=== PATIENT | female | born 1970 | race Caucasian/White ===

== ENCOUNTER 2016-11-16 02:48 | Emergency (ER) | payer MEDICARE, OTHER ==
[~2016-11-16] VITALS: Ht 170.2 cm; Wt 90.9 kg
[2016-11-16 02:49] VITALS: BP 129/79; PULSE 74; RESP 18; O2SAT 97
[2016-11-16] MEDS ORDERED: 0.9% Sodium Chloride 1,000 ML IV ONE (03:09)
[2016-11-16] MEDS ORDERED: Ondansetron 2 mg/mL 2 mL Inj IVPUSH ONE (03:10)
[2016-11-16] MEDS ORDERED: Pantoprazole 4 mg/mL 10 mL Inj IVPUSH ONE (03:10)
[2016-11-16 03:39] LABS: BASOPHILS % (AUTO) 0.2 % (0-3); EOSINOPHILS % (AUTO) 2.2 % (0-5); MONOCYTES % (AUTO) 8.5 % (4-12); Mean Corpuscular Hemoglobin 32.7 pg (27.0-35.0); NEUTROPHILS % (AUTO) 69.7 % (40-74); Platelet Count 216 bil/L (150-400)
[2016-11-16 03:56] LABS: INR 0.94 ratio
--- NOTE | 2016-11-16 04:01 | ED.REPORT ---
HPI-Abd Pain F 40 and Over Date of Service November 16, 2016 ED Provider: French Park MD 45 year old female with a history of diverticulitis presents to the ER complaining of lower abdominal pain onset yesterday. Pain is cramping in character, and is similar to that associated with diverticulitis in the past. Symptoms are exacerbated by movement and ambulation. Associated symptom of constipation. Patient denies any nausea and vomiting. Nursing Notes Stated Complaint: ABDOMINAL PAIN Chief Complaint: Female Abdominal Pain Nursing Notes Reviewed: Yes Allergies: Coded Allergies: Penicillins (Verified Adverse Reaction, Severe, headache, 11/16/16) prednisone (Verified Adverse Reaction, Severe, headache, 06/06/15) Scheduled Amoxicillin/Clav K ER 1000-62.5 mg (Augmentin XR 1000-62.5 mg) 1 Each Tab.er.12h 2 TABLET PO BID Scheduled PRN Docusate Sodium (Colace) 100 Mg Capsule 100 MG PO BID PRN PRN For Constipation Hydrocodone-Acetaminophen 5-325 mg (Hydrocodone-Acetaminophen 5-325 mg) 1 Each Tablet 1 TABLET PO Q4H PRN PRN For Pain Ondansetron ODT (Ondansetron ODT) 8 Mg Tab.rapdis 8 MG PO QID PRN PRN For Nausea General Time Seen by MD: 03:17 Chief Complaint Abdominal pain Hx Obtained From: Patient Arrived By: Walk-in Sudden in Onset?: No Onset Occurred: Yesterday Symptom Duration: Since onset Location: : Abdomen lower Quality: Cramping Severity: Current: Moderate Severity: Maximum: Moderate Associated with: Reports: Constipation, Denies: Nausea, Vomiting Exacerbated by: Movement, Walking Pertinent Negative: Relieved by nothing Similar Sx Previous: Yes Past Medical History Past Medical History Anxiety Diverticulitis Smoking History Current Every Day Smoker Review of Systems Constitutional: Denies: Chills, Fever GI: Reports: Abdominal pain, Constipation, Denies: Diarrhea, Nausea, Vomiting Complete sys rev & neg: except as marked. Physical Exam Vital Signs Vital Signs (First) Date Time Temp Pulse Resp B/P Pulse Ox O2 Delivery O2 Flow Rate FiO2 11/16/16 02:49 37.5 74 18 129/79 97 Room Air Initial VS: Reviewed Head / Eyes: Atraumatic, Normocephalic Neck: Supple, Non-tender, Full range of motion Skin: Warm, Dry, No cyanosis Neurologic: Alert, Oriented, Nonfocal General/Constitutional: Awake, Alert Respiratory / Chest: Breath sounds NL, Breath sounds = bilat, No respiratory distress, No rales, No rhonchi, No wheezing, No stridor Cardiovascular: Heart rate NL, Regular rhythm, Heart sounds NL, Peripheral circulation NL Abdomen: Soft, No guarding, No rebound, No distention Tenderness/Guarding/Rebound: Positive: Tender LLQ... (Moderate) Back: Inspection NL, Non-tender, No CVA tenderness Interpretation & Diagnostics Lab Results Interpretation Result Diagram: 11/16/16 0328 11/16/16 0328 Test 11/16/16 03:28 11/16/16 04:30 White Blood Count 10.7th/mm3 (3.8-10.1) Red Blood Count 4.34mil/mm3 (3.90-5.20) Hemoglobin 14.2g/dL (12.0-15.6) Hematocrit 40.8% (35.0-46.0) Mean Corpuscular Volume 94.0fL (81-100) Mean Corpuscular Hemoglobin 32.7pg (27.0-35.0) Mean Corpuscular Hemoglobin Concent 34.8% (32.0-37.0) Red Cell Distribution Width 13.1% (12.3-15.4) Platelet Count 216bil/L (150-400) Neutrophils (%) (Auto) 69.7% (40-74) Lymphocytes (%) (Auto) 19.2% (14-46) Monocytes (%) (Auto) 8.5% (4-12) Eosinophils (%) (Auto) 2.2% (0-5) Basophils (%) (Auto) 0.2% (0-3) Prothrombin Time 10.0sec (8.1-12.5) Prothromb Time International Ratio 0.94ratio Sodium Level 138mEq/L (134-144) Potassium Level 4.1mEq/L (3.5-5.2) Chloride Level 101mEq/L (97-108) Carbon Dioxide Level 24mmol/L (18-29) Blood Urea Nitrogen 19mg/dL (6-24) Creatinine 0.80mg/dL (0.57-1.00) Estimat Glomerular Filtration Rate 112mL/min (>59) Glucose Level 113mg/dL (60-99) Lactic Acid Level 0.7mmol/L (0.4-2.0) Calcium Level 9.6mg/dL (8.5-10.1) Magnesium Level 1.9mg/dL (1.6-2.6) Total Bilirubin 0.4mg/dL (0.0-1.2) Aspartate Amino Transf (AST/SGOT) 18U/L (0-50) Alanine Aminotransferase (ALT/SGPT) 19U/L (0-32) Alkaline Phosphatase 76U/L (25-150) Total Protein 7.1g/dL (6.4-8.4) Albumin 3.8g/dL (3.4-5.0) Lipase 32U/L (13-60) Urine Color Straw (YELLOW) Urine Appearance Clear (CLEAR,HAZY) Urine pH 5.5 (5.0-8.0) Urine Specific [place] 1.006 (1.003-1.035) Urine Protein Negativemg/dL (NEG,TRACE) Urine Glucose (UA) Negativemg/dL (NEGATIVE) Urine Ketones Negativemg/dL (NEGATIVE) Urine Occult Blood Negative (NEGATIVE) Urine Nitrite Negative (NEGATIVE) Urine Bilirubin Negative (NEGATIVE) Urine Urobilinogen Normalmg/dL (NORMAL) Urine Leukocyte Esterase Negative (NEGATIVE) Urine RBC 0-2/hpf (0-2) Urine WBC 0-5/hpf (0-5) Urine Epithelial Cells Few/hpf (NONE-MOD) Urine Crystals None seen (NONE SEEN) Urine Bacteria None/hpf (NONE-FEW) Urine Hyaline Casts None/lpf (NONE) Urine Granular Casts None seen (NONE SEEN) Urine Waxy Casts None seen (NONE SEEN) Urine Red Blood Cell Casts None seen (NONE SEEN) Urine White Blood Cell Casts None seen (NONE SEEN) Urine Mucus None seen (None Seen) Urine Trichomonas None seen (NONE SEEN) Urine Yeast None (NONE SEEN) Urinalysis Comment None Urine Culture Reflexed Not indicated ECG Interpretation ECG Interpretation: Sinus rhythm, rate 80 Time: 03:24 Interpreted by: ED physician CT Abd / Pelvis Interpretation CONCLUSION: Findings consistent with acute sigmoid colon diverticulitis. Electronically signed by Freddy Renner MD Study type: Abdominal CT IV contrast Interpretation / Wet Read by: Interpret - Radiologist Re-Eval/Medical Decision Med Decision/Clinical Course 45-year-old female with prior diverticulitis presents again with similar pain and diverticulitis by CT. Its fairly limited extension without evidence of perforation or abscess or obstruction. This is probably amenable to outpatient therapy and various possibilities discussed. She is willing to attempt outpatient therapy. She is intolerant of Flagyl orally. Alternative is Augmentin ES two tablets twice a day. She was begun with Augmentin here and the appropriate strength initiated. Discharged now in stable condition with Zofran Augmentin Colace and Vicodin when necessary Source of Hx: Old records Re-Evaluation/Progress : Time of Eval: 05:49 Re-Evaluation/Progress Note: Patient is now accompanied by her who is at bedside. Discussed lab and imaging results and plan to discharge. Patient is amenable to the plan. Return precautions given. All other questions addressed. Counseled Regarding: Diagnosis, Lab results, Need for follow-up, When/why to return to ED Discharge & Departure Primary Impression: Diverticulitis Disposition: Home Discharge Condition All VS Reviewed: Yes Condition: Stable Patient Instructions: Diverticulitis (ED) Additional Instructions: Your CT indicates diverticulitis. Begin Augmentin two tablets twice daily Vicodin sparingly as needed for pain Ibuprofen four times daily for pain Stool softener twice daily Begin Metamucil and continue it for the indefinite future Zofran up to four times daily if needed for nausea Clear liquid diet and advance as tolerated. Follow-up with your doctor in 1-2 days. Return to the ER with new or worsening pain, or if you develop fever, chills, nausea, vomiting, diarrhea, blood in your stool, or any other concerning symptoms. Referrals: Ritchie Moyer MD (PCP) Jaz Attestation Portions of this note were transcribed by Nitin Edwards. I, Dr. Park, personally performed the history, physical exam and medical decision-making; I reviewed and confirmed the accuracy of the information in the transcribed note. Signed by: Jaz Pate, 11/16/2016 at 06:01 copies to: Ritchie Moyer MD, Christopher W MD November 16, 2016 04:01 NITIN EDWARDS November 16, 2016 04:24
[2016-11-16 04:02] LABS: Magnesium 1.9 mg/dL (1.6-2.6)
[2016-11-16 04:57] LABS: APPEARANCE,URINE CLEAR (CLEAR,HAZY); COLOR,URINE STRAW (YELLOW); OCCULT BLOOD,URINE NEGATIVE (NEGATIVE); PH,URINE 5.5 (5.0-8.0); UROBILINOGEN,URINE NORMAL (NORMAL)
[2016-11-16] MEDS ORDERED: Amoxicillin-Clav 875-125 mg Tablet PO ONE (05:55)
[2016-11-16] MEDS ORDERED: HYDROcodone-APAP 5-325 mg Tablet PO ONE (05:55)
[2016-11-16] MEDS ORDERED: _Ondansetron ODT 4 mg Tablet PO PRN (05:55)
[2016-11-16] MEDS ORDERED: DOCU-41 PO (05:59)
[2016-11-16] MEDS ORDERED: ONDA8TAB10 PO (05:59)
[2016-11-16] MEDS ORDERED: AMOX-364 PO (05:59)
[2016-11-16] MEDS ORDERED: HYDR-4003 PO (05:59)
[2016-11-16 06:23] VITALS: BP 128/64; PULSE 77; RESP 25; O2SAT 97
[2016-11-16] MEDS ORDERED: Sodium Chloride LOK Flush 10 mL Syringe IVFLUSH SCH (08:30)
--- NOTE | 2016-11-16 09:37 | DRSVH ---
PROCEDURE: CT ABDOMEN AND PELVIS WITH CONTRAST ([id number]) INDICATIONS: llq pain, hx diverticulitis TECHNIQUE: After the administration of intravenous contrast, 5 mm thick sections acquired from the diaphragm to the symphysis. 5 mm coronal and sagittal reformats were acquired. For radiation dose reduction, the following was used: automated exposure control, adjustment of mA and/or kV according to patient siz e. COMPARISON: CT abdomen and pelvis 06/06/2015 FINDINGS: Preliminary report by shift supervisor rn radiology Image quality: Excellent. ABDOMEN: Lung bases: Lung bases are clear. Heart size is normal. Solid organs: Liver and spleen are normal in size and enhancement. Gallbladder is normal. Biliary system is non dilated. Pancreas enhances normally. No adrenal nodules. Kidneys demonstrate normal size and enhancement, without hydronephrosis. Peritoneum and bowel: Small bowel loops demonstrate normal wall thickness and caliber. An area of guille wel inflammation is again present in the mid sigmoid colon, axial image 73, associated with colonic d iverticula and consistent with recurrent diverticulitis. No free fluid or air. No evidence of appendi citis. Nodes and vessels: No retroperitoneal or mesenteric adenopathy by size criteria. Aorta and inferior vena cava are normal in size. Miscellaneous: No ventral hernias. PELVIS: Genitourinary: Bladder wall thickness is normal. IUD is in expected position. Small left ovarian cy st. Miscellaneous: No inguinal hernias or adenopathy. Bones: No suspicious bony lesions. No vertebral body compression fractures. Non-fused apophysis ant erior, superior corner of L4. Degenerative disc disease and slight retrolisthesis L4-5. Partial sacra lization of L5. IMPRESSION: 1. Recurrent sigmoid diverticulitis. No apparent complication. 2. Uterine IUD. Small left ovarian cyst. Findings are concordant with the preliminary report Dictated by: Jose Adkins M.D. on 11/16/2016 at 9:28 Approved by: Jose Adkins M.D. on 11/16/2016 at 9:36
== END 2016-11-16 05:59 | disposition home or self-care (01) ==
LOC: SED 02:48
DX: K57.00 Diverticulitis of small intestine with perforation and abscess without bleeding (principal); F41.9 Anxiety disorder, unspecified; F17.200 Nicotine dependence, unspecified, uncomplicated; Z88.8 Allergy status to other drugs, medicaments and biological substances; Z88.0 Allergy status to penicillin
CPT/HCPCS: 36415; 74177; 80053; 81000; 81025; 83605; 83690; 83735; 85025; 85610; 93005; 96361; 96374; 96375; 99285; J1885; J2405; J7030; Q9967